=== PATIENT | female | born 1995 | race Caucasian/White ===

== ENCOUNTER 2022-05-20 09:15 | Outpatient (CLI) | payer OTHER, SELFPAY ==
--- NOTE | 2022-05-20 09:35 | XR_ITS ---
WS: [id number] Right hand, AP and lateral views, 05/20/2022 Clinical Data: BILATERAL HAND NUMBNESS Comparison: None. Findings: No fractures or dislocations are seen. The soft tissues are unremarkable. The joint space s are normal No periarticular demineralization or calcifications are seen. XR/XR hand RT 2V [id number] Impression: Negative right hand.
--- NOTE | 2022-05-20 09:35 | XR_ITS ---
WS: [id number] Left hand, AP and lateral views, 05/20/2022 Clinical Data: BILATERAL HAND NUMBNESS Comparison: None. Findings: No fractures or dislocations are seen. The soft tissues are unremarkable. The joint spaces are normal No periarticular demineralization or calcifications are seen. XR/XR hand LT 2V [id number] Impression: Negative left hand.
== END 2022-05-20 09:16 | disposition home or self-care (01) ==
PROVIDERS: PCP Family Medicine; Visit Provider Family Medicine
DX: R20.0 Anesthesia of skin (principal)
CPT/HCPCS: 73120

== ENCOUNTER 2022-06-16 07:31 | Day surgery (SDC) | payer OTHER, SELFPAY ==
[2022-06-14 12:11] VITALS: BMI 22.8
[2022-06-16 08:04] VITALS: BP 96/71; PULSE 84; RESP 16; TEMP 36.3; O2SAT 99
[2022-06-16 08:15] LABS: OR HCG Qualitative Urine Negative (Negative)
[2022-06-16] MEDS: sodium chloride 0.9% 1,000 ML 30 ML IV (08:20)
--- NOTE | 2022-06-16 08:57 | ANES.PREANE2 ---
Pre-Anesthetic Assessment Height/Weight: Height 1.57 m Weight 56.699 kg Temp Pulse Resp BP Pulse Ox O2 Del Method 97.3 F L 84 16 96/71 99 06/16/22 08:04 06/16/22 08:04 06/16/22 08:04 06/16/22 08:04 06/16/22 08:04 06/16/22 08:04 Preop Diagnosis: abdominal pain and bloody diarrhea Operation Date: 06/16/22 09:15 Proposed Procedures p EGD and colonoscopy [id number],K92.1(Not Applicable) - Teo Blanco MD s Colonoscopy(Not Applicable) - Teo Blanco MD Last intake: Intake Last Liquid Date 06/15/22 Last Liquid Time 22:00 Last Solid Date 06/14/22 Last Solid Time 18:00 Social denies all Exam alert, oriented x 3, clear to auscultation bilaterally and regular rate & rhythm Airway Submandibular: within normal limits Cervical ROM: within normal limits Mallampati: Class II Comments: Comments: underbite, anterior chin History/ROS No significant history except as noted Pulmonary None reported CV/HEM None reported None reported Hepatic None reported GI Gastroesophageal Reflux Disease Metabolic None reported Musc/skel None reported Neuropsych Anxiety and Depression Anesthetic Plan ASA status: 2 Anesthesia: Anesthesia Evaluation and MAC Risk of > 500 ml blood loss (7ml/kg in children): Yes, adequate IV access and fluids planned Medications/Allergies Home Medications Medication Instructions Recorded Confirmed Last Taken Type ferrous sulfate 325 mg (65 mg 325 mg PO DAILY 10/26/21 06/16/22 06/14/22 History iron) tablet (Feosol) rizatriptan 10 mg tablet (Maxalt) 10 mg PO Q2H PRN headache 10/26/21 06/16/22 06/14/22 History topiramate 25 mg tablet (Topamax) 25 mg PO BID 10/26/21 06/16/22 06/09/22 History naproxen 500 mg tablet 500 mg PO PRN headach 06/14/22 06/16/22 06/13/22 History Allergies Allergy/AdvReac Type Severity Reaction Status Date / Time No Known Allergies Allergy Verified 05/17/22 18:03 Current Medications Generic Name Dose Route Start Last Admin Trade Name Freq PRN Reason Stop Dose Admin Sodium Chloride 1,000 mls @ 30 mls/hr 06/16/22 08:00 06/16/22 08:20 Sodium Chloride 0.9% IV 30 mls/hr .Q24H [place]TON Administration PFSH Anesthesia Social History Smoking and tobacco status: never smoked Data Anesthesia Cardiac Studies: No Data to Display
--- NOTE | 2022-06-16 09:28 | W.PM.OPSFHP ---
Same Day Surgery H&P Indication for Procedure/HPI DATE OF PROCEDURE: June 16, 2022 CHIEF COMPLAINT/INDICATIONFOR SURGICAL PROCEDURE: My elise garcia PREOP DIAGNOSIS: abdominal pain and bloody diarrhea PLANNED PROCEDURE: Operation Date: 06/16/22 09:15 Proposed Procedures p EGD and colonoscopy [id number],K92.1(Not Applicable) - Teo Blanco MD s Colonoscopy(Not Applicable) - Teo Blanco MD 05/16/2022 This is a pleasant 27 years old female patient otherwise healthy gives history of central sharp abdominal pain not being referred since she was a teenage.? She reports also that she does have bloody diarrhea and she gives history of Crohn's disease of her aunt and ulcerative colitis of one of her cousins.? She had history of surgical pyloromyotomy when she was a baby.? Denies personal history of inflammatory bowel disease.? Also denies history of mucus passage with stools.? She complains also of heartburn. Pain is not being referred mostly in the center of her abdomen.? No history of recent travels or thyroid disorders or sick contacts or questionable source of water or antibiotics.Patient is referred to my practice for further evaluation and potential management. 06/16/2022 Patient comes today for diagnostic EGD and colonoscopy ROS All systems have been reviewed negative except as for the above or per problem list. Medications/Allergies* Home Medications Medication Instructions Recorded Confirmed Type ferrous sulfate 325 mg (65 mg 325 mg PO DAILY 10/26/21 06/16/22 History iron) tablet (Feosol) rizatriptan 10 mg tablet (Maxalt) 10 mg PO Q2H PRN headache 10/26/21 06/16/22 History topiramate 25 mg tablet (Topamax) 25 mg PO BID 10/26/21 06/16/22 History naproxen 500 mg tablet 500 mg PO PRN headach 06/14/22 06/16/22 History Allergies/Adverse Reactions Allergy/AdvReac Type Severity Reaction Status Date / Time No Known Allergies Allergy Verified 06/16/22 09:29 Current Medications: Generic Name Dose Route Start Last Admin Trade Name Freq PRN Reason Stop Dose Admin Sodium Chloride 1,000 mls @ 30 mls/hr 06/16/22 08:00 06/16/22 08:20 Sodium Chloride 0.9% IV 30 mls/hr .Q24H [place] Administration Pertinent History/Comorbid Conditions* Social History Smoking and tobacco status: never smoked Pertinent Exam Findings alert, oriented x 3, regular rate & rhythm and procedure specific exam findings (Abdominal exam nontender nondistended soft) Recommendations Surgery/Procedure today (EGD and colonoscopy with possible biopsy) Coding Level of Care Code Acute Film Processing Shift Supervisor for Aracelis Crockett
[2022-06-16 10:05] VITALS: BP 90/52; PULSE 79; RESP 12; TEMP 36.5; O2SAT 96
[2022-06-16 10:18] VITALS: BP 101/63; PULSE 79; RESP 16; O2SAT 98
[2022-06-16] MEDS: ondansetron 2 mg/ML SDV 2 mL 4 MG IVP (10:30)
[2022-06-16 10:32] VITALS: BP 97/58; PULSE 81; RESP 18; O2SAT 100
--- NOTE | 2022-06-16 14:58 | ANE.PACU2 ---
Inpatient post-anesthesia follow up: Airway intact: Yes Vital signs: Temperature 97.7 F Pulse Rate 81 Respiratory Rate 18 Blood Pressure 97/58 Pulse Oximetry 100 Oxygen Delivery Me thod Room Air Oxygen Flow Rate Fraction of Inspir ed Oxygen Hydration adequate: Yes Nausea and vomiting: No Pain level: 1 Mental status: Baseline
== END 2022-06-16 11:02 | disposition home or self-care (01) ==
PROVIDERS: Anesthesiology; PCP Family Medicine; Visit Provider Surgery
PROC: 0DJ08ZZ Inspection of Upper Intestinal Tract, Via Natural or Artificial Opening Endoscopic (ICD-10-PCS; CPT 43235; principal; 2022-06-16 09:15)
PROC: 0DJD8ZZ Inspection of Lower Intestinal Tract, Via Natural or Artificial Opening Endoscopic (ICD-10-PCS; CPT 45378; 2022-06-16 09:15)
DX: R10.9 Unspecified abdominal pain (principal); R19.7 Diarrhea, unspecified; K21.00 Gastro-esophageal reflux disease with esophagitis, without bleeding; K29.70 Gastritis, unspecified, without bleeding; K29.50 Unspecified chronic gastritis without bleeding; K29.80 Duodenitis without bleeding
CPT/HCPCS: 43239; 45378; 81025; 82274; 83630; 84703; 87493; 87506; 88305; J2405; J2704; J7030

== ENCOUNTER 2022-09-12 11:11 | Outpatient (CLI) | payer BC, SELFPAY ==
--- NOTE | 2022-09-12 12:30 | CTR_ITS ---
PROCEDURE INFORMATION: Exam: CT Abdomen And Pelvis With Contrast Exam date and time: 09/12/2022 1:21 PM Age: 27 years old Clinical indication: Pain and condition or disease; Prior surgery; Surgery type: Colon when child, surgical pyloromyotomy; Patient HX: History--abdominal pain and blood in stool; Additional info: Z87.898 - personal history of other specified conditions, iv and oral contrast TECHNIQUE: Imaging protocol: Computed tomography of the abdomen and pelvis with contrast. Radiation optimization: All CT scans at this facility use at least one of these dose optimization techniques: automated exposure control; mA and/or kV adjustment per patient size (includes targeted exams where dose is matched to clinical indication); or iterative reconstruction. Contrast material: OMNIPAQUE 350; Contrast volume: 95 ml; Contrast route: INTRAVENOUS (IV); Other contrast: Oral, omnipaque 350, 20; COMPARISON: No relevant prior studies available. RADIATION DOSE METRICS: Total DLP (mGy-cm): 866.44 FINDINGS: Liver: Normal. No mass. Gallbladder and bile ducts: Normal. No calcified stones. No ductal dilation. Pancreas: Normal. No ductal dilation. Spleen: Normal. No splenomegaly. Adrenal glands: Normal. No mass. Kidneys and ureters: No obstructing calculus. No hydronephrosis. Stomach and bowel: Unremarkable. No obstruction. No mucosal thickening. Appendix: No evidence of appendicitis. Intraperitoneal space: Unremarkable. No free air. No significant fluid collection. Vasculature: No abdominal aortic aneurysm. Lymph nodes: No enlarged lymph nodes. Urinary bladder: Unremarkable as visualized. Reproductive: Unremarkable as visualized. Bones/joints: No acute fracture. Soft tissues: No acute findings. CT/CT abdomen pelvis w con* [id number] IMPRESSION: No acute findings or significant bowel findings to account for history of GI bleed. However follow-up with endoscopy correlation may be helpful.
[2022-09-12] MEDS: iohexol 350 mg/mL 500 mL Btl (per mL) PO (12:57)
[2022-09-12] MEDS: iohexol 350 mg/mL 500 mL Btl (per mL) IV (13:53)
== END 2022-09-12 11:12 | disposition home or self-care (01) ==
LOC: RAD 11:11
PROVIDERS: PCP Family Medicine; Visit Provider Surgery
DX: Z87.19 Personal history of other diseases of the digestive system (principal); Z87.898 Personal history of other specified conditions
CPT/HCPCS: 74177; J1200; Q9967

== ENCOUNTER 2023-07-09 19:28 | Emergency (ER) | payer BC, MEDICAID, SELFPAY ==
[2023-07-09 19:37] VITALS: BP 147/107; PULSE 95; RESP 21; TEMP 36.6; O2SAT 95; BMI 27.4
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
[2023-07-09] MEDS: tetracaine 0.5% Op Soln 4 mL Btl 1 DROP EYE-LEFT (19:51)
[2023-07-09] MEDS: HYDROcodone-acetaminophen 7.5-325 mg Tablet 1 TAB PO (19:51)
[2023-07-09] MEDS: fluorescein 1 mg Strip EYE-LEFT (19:51)
== END 2023-07-09 20:25 | disposition home or self-care (01) ==
PROVIDERS: Emergency Provider Nurse Practitioner Family; PCP Family Medicine
DX: S05.02XA Injury of conjunctiva and corneal abrasion without foreign body, left eye, initial encounter (principal); W22.8XXA Striking against or struck by other objects, initial encounter
CPT/HCPCS: 99283

== ENCOUNTER 2023-08-26 20:15 | Emergency (ER) | payer MEDICAID, SELFPAY ==
[2023-08-26 20:19] VITALS: BP 121/69; PULSE 82; RESP 14; TEMP 36.7; O2SAT 100
[2023-08-26 21:10] LABS: Basophils % 0.3 %; Eosinophils # 0.1 10^3/uL (0.0-0.8); Eosinophils % 1.2 %; Hematocrit 42.5 % (36-47); Lymphocytes # 2.9 10^3/uL (0.8-4.8); Lymphocytes % 29.3 %; Mean Corpuscular HGB Conc 33.2 g/dL (30-55); Mean Corpuscular Hemoglobin 28.7 pg (27-33); Mean Corpuscular Volume 86.4 fl (85-98); Mean Platelet Volume 8.4 fL (7.4-10.4); Monocytes # 0.5 10^3/uL (0.2-0.9); Monocytes % 5.4 %; Neutrophils # 6.22 10^3/uL (1.8-7.7); Neutrophils % 63.6 %; Nucleated Red Blood Cells % 0 %; Platelet Count 356 10^3/cmm (157-399); Red Blood Count 4.92 10^6/uL (3.85-5.65); Red Cell Distribution Width 12.7 % (12.1-15.1); White Blood Count 9.79 10^3/uL (3.29-11.43)
[2023-08-26 21:30] LABS: Alanine Aminotransferase 8 U/L (0-33); Albumin Level 4.9 g/dL (3.5-5.2); Alkaline Phosphatase 70 U/L (35-105); Anion Gap 14.8 (5-19); Aspartate Amino Transferase 15 U/L (0-32); Blood Urea Nitrogen 11 mg/dL (6-20); Calcium 9.4 mg/dL (8.5-10.5); Carbon Dioxide 24 mmol/L (22-29); Chloride 103 mmol/L (98-107); Globulin 3.1 g/dL (1.3-4.6); Glucose 83 mg/dL (65-115); Lipase 50 U/L (13-60); Osmolality Calculated 285 mOsm/kg (285-295); Potassium 3.8 mmol/L (3.5-5.1); Sodium 138 mmol/L (136-145); Total Bilirubin 0.3 mg/dL (0.15-1.2)
--- NOTE | 2023-08-26 22:06 | W.ED.PREGNAN ---
HPI - General: Chief complaint: Vaginal Bleeding Stated complaint: passing blood clots with abd pain Time Seen by Provider: 08/26/23 21:14 Source: patient Mode of arrival: ambulatory Limitations: no limitations History of Present Illness: 28-year-old female states that she has had heavy vaginal bleeding throughout the day states actually slowed down this evening she had passed blood clots earlier today. She does have irregular menstruation states that her menstruation is 3 weeks late states there is a chance she could be she had some abdominal cramping denies any lightheadedness. Associated symptoms: Reports abdominal pain; Deny dysuria, headache(s), nausea or vomiting Review of Systems Const: Denies: fever(s), chills, body aches or change in appetite ENMT: Denies: throat pain or dental pain Card: Denies: chest pain Resp: Denies: dyspnea GI: Reports: abdominal pain; Denies: nausea, vomiting or diarrhea : Reports: vaginal bleeding; Denies: dysuria Musc: Denies: neck pain or back pain Skin/Breast: Denies: rash Neuro: Denies: headache(s) PFSH ED PFSH: Social History Smoking and tobacco/nicotine status: never used tobacco/nicotine Alcohol intake: never Substance/Drug Use: never Physical Exam Const: COMMON NORMALS: no acute distress, patient oriented x3 and healthy appearing HENMT: COMMON NORMALS: normocephalic and atraumatic HEAD & SCALP: normocephalic and atraumatic Neck/C-Spine: COMMON NORMALS: full ROM and supple Chest: COMMONS NORMALS: normal inspection of the chest Resp: COMMON NORMALS: normal respiratory effort GI: COMMON NORMALS: Normal to inspection, nondistended, normoactive bowel sounds present, Soft to palpation, non-tender and no masses PALPATION: Yes Soft to palpation Extremity: COMMON NORMALS: normal to inspection and full ROM Neuro: COMMON NORMALS: patient oriented x3, moves all extremities and no focal motor deficits Psych: COMMON NORMALS: mental status grossly normal, Normal thought process present and cooperative THOUGHT PROCESS: Normal thought process present Skin: COMMON NORMALS: no rashes or lesions noted and no wounds GENERAL SKIN EXAM: no rashes or lesions noted Course Vital Signs: Vital signs: Vital Signs Temperature 98.0 F 08/26/23 20:19 Pulse Rate 78 08/26/23 23:08 Respiratory Rate 16 08/26/23 23:08 Blood Pressure 111/61 08/26/23 23:08 Pulse Oximetry 100 08/26/23 23:08 Oxygen Delivery Me thod Room Air 08/26/23 20:19 MDM - OB/Uterine Contractions Medical Decision Making Patient presents with vaginal bleeding with threatened miscarriage from looks ultrasound patient is likely going to miscarry have informed her of this she is return if she has heavy bleeding her bleeding is slowed down here she is to follow-up with her PCP. Medical Records I reviewed the patient's medical records. Lab Data I reviewed the patient's lab results. 08/26/23 21:00 08/26/23 21:00 Laboratory Results WBC 9.79 10^3/uL (3.29-11.43) 08/26/23 21:00 RBC 4.92 10^6/uL (3.85-5.65) 08/26/23 21:00 Hgb 14.10 g/dL (11.27-16.99) 08/26/23 21:00 Hct 42.5 % (36-47) 08/26/23 21:00 MCV 86.4 fl (85-98) 08/26/23 21:00 MCH 28.7 pg (27-33) 08/26/23 21:00 MCHC 33.2 g/dL (30-55) 08/26/23 21:00 RDW 12.7 % (12.1-15.1) 08/26/23 21:00 Plt Count 356 10^3/cmm (157-399) 08/26/23 21:00 MPV 8.4 fL (7.4-10.4) 08/26/23 21:00 Neut % (Auto) 63.6 % 08/26/23 21:00 Lymph % (Auto) 29.3 % 08/26/23 21:00 [place] % (Auto) 5.4 % 08/26/23 21:00 Eos % (Auto) 1.2 % 08/26/23 21:00 Baso % (Auto) 0.3 % 08/26/23 21:00 Neut # (Auto) 6.22 10^3/uL (1.8-7.7) 08/26/23 21:00 Lymph # (Auto) 2.9 10^3/uL (0.8-4.8) 08/26/23 21:00 [place] # (Auto) 0.5 10^3/uL (0.2-0.9) 08/26/23 21:00 Eos # (Auto) 0.1 10^3/uL (0.0-0.8) 08/26/23 21:00 Baso # (Auto) 0.0 10^3/uL (0.0-0.1) 08/26/23 21:00 Nucleated RBC % (auto) 0 % 08/26/23 21:00 Nucleated RBCs # 0.0 /100WBC 08/26/23 21:00 Sodium 138 mmol/L (136-145) 08/26/23 21:00 Potassium 3.8 mmol/L (3.5-5.1) 08/26/23 21:00 Chloride 103 mmol/L (98-107) 08/26/23 21:00 Carbon Dioxide 24 mmol/L (22-29) 08/26/23 21:00 Anion Gap 14.8 (5-19) 08/26/23 21:00 BUN 11 mg/dL (6-20) 08/26/23 21:00 Creatinine 0.8 mg/dL (0.5-0.9) 08/26/23 21:00 GFR Calculation 86.0 mL/min (90-130) L 08/26/23 21:00 Glucose 83 mg/dL (65-115) 08/26/23 21:00 Calculated Osmolality 285 mOsm/kg (285-295) 08/26/23 21:00 Calcium 9.4 mg/dL (8.5-10.5) 08/26/23 21:00 Total Bilirubin 0.3 mg/dL (0.15-1.2) 08/26/23 21:00 AST 15 U/L (0-32) 08/26/23 21:00 ALT 8 U/L (0-33) 08/26/23 21:00 Alkaline Phosphatase 70 U/L (35-105) 08/26/23 21:00 Total Protein 8.0 g/dL (6.6-8.7) 08/26/23 21:00 Albumin 4.9 g/dL (3.5-5.2) 08/26/23 21:00 Globulin 3.1 g/dL (1.3-4.6) 08/26/23 21:00 Lipase 50 U/L (13-60) 08/26/23 21:00 Ser , Semi-Qnt 7624.00 mIU/mL 08/26/23 21:00 Urine Color Yellow (Yellow) 08/26/23 22:50 Urine Appearance Clear (CLEAR) 08/26/23 22:50 Urine pH 6.5 (5-7) 08/26/23 22:50 Ur Specific [place] 1.015 (1.005-1.030) 08/26/23 22:50 Urine Protein Neg (Negative) 08/26/23 22:50 Urine Glucose (UA) Norm (Normal) 08/26/23 22:50 Urine Ketones 1+ (Negative) H 08/26/23 22:50 Urine Blood 3+ (Negative) H 08/26/23 22:50 Urine Nitrate Negative (Negative) 08/26/23 22:50 Urine Bilirubin Neg (Negative) 08/26/23 22:50 Urine Urobilinogen Neg mg/dL (Negative) 08/26/23 22:50 Ur Leukocyte Esterase Negative (Negative) 08/26/23 22:50 Urine RBC 15-25 /hpf (0-2) H 08/26/23 22:50 Urine WBC None /hpf (0-5) 08/26/23 22:50 Ur Squamous Epith Cells Rare /hpf (0-5) 08/26/23 22:50 Amorphous Sediment Not Reportable 08/26/23 22:50 Urine Bacteria None /hpf (NONE) 08/26/23 22:50 XR interpretation done by ED provider, pending radiology final review Discharge Plan Discharge Patient Disposition: Home Clinical Impression: Threatened Condition: Stable Prescriptions: No Action topiramate [Topamax] 25 mg tablet 25 mg PO BID rizatriptan [Maxalt] 10 mg tablet 10 mg PO Q2H PRN (Reason: headache) Rx Instructions: do not exceed 3 doses per 24 hrs ferrous sulfate [Feosol] 325 mg (65 mg iron) tablet 325 mg PO DAILY Protonix 40 mg tablet,delayed release (DR/EC) 40 mg PO DAILY 30 Days Qty: 30 3RF hydrocodone-acetaminophen 5-325 mg tablet 1 tab PO Q6H PRN (Reason: pain) Qty: 10 0RF Discharge Orders: Discharge ED (Routine); Ordered 08/26/23 Ordered By: Magdalena Marquez Referrals: Nick Tolentino MD [Primary Care Provider] - 1-3 days Discharge Diet: Advance as tolerated Discharge Activity: Resume usual activity Patient Instructions: Threatened Miscarriage (ED) Coding Level of Care Code ED Logistics Manager for Aracelis Crockett
--- NOTE | 2023-08-26 22:30 | USR_ITS ---
PROCEDURE INFORMATION: Exam: US First Trimester, Transabdominal and US , Transvaginal Exam date and time: 08/26/2023 11:09 PM Age: 28 years old Clinical indication: Lmp or gestational age (in weeks): 7w6d per patient; Antepartum complications; Bleeding; Additional info: Threatened miscarriage LABS AND CLINICAL REPORTS: Last menstrual period start date: 07/02/2023 Gestational age (Established): 7 w 6 d Estimated due date (Established): 04/07/2024 TECHNIQUE: Imaging protocol: Real-time transabdominal obstetrical ultrasound of the maternal pelvis and a first trimester , less than 14 weeks 0 days, with image documentation. Transvaginal imaging was used for better evaluation of the fetus, adnexa, and/or cervix. COMPARISON: CT abdomen pelvis w con* [id number] 09/12/2022 1:21 PM FINDINGS: Gestation: Intrauterine gestational sac with a possible pole in the inferior aspect of the sac, finding appears to potentially represent an abnormal , close clinical correlation, serial beta HCG levels and follow-up ultrasound as clinically indicated advised. cardiac activity not identified. BIOMETRY: Gestational age (AUA): 6 w 2 d Mean sac diameter: 1.35 cm. EGA (MSD) is 6 w 3 d Barnum-Rump length (CRL): 3.7 mm. EGA (CRL) is 6 w 0 d MATERNAL: Uterus: Unremarkable. Cervix: Cervical length measures 3.06 cm. Right ovary/adnexa: Right ovary 8 mm cyst, may be corpus luteal nature. Left ovary/adnexa: Unremarkable ovary. Intraperitoneal space: No intraperitoneal free fluid. US/US OB <=14 wk fetus w transvag IMPRESSION: 1. Intrauterine gestational sac with a possible pole in the inferior aspect of the sac, finding appears to potentially represent an abnormal , close clinical correlation, serial beta HCG levels and follow-up ultrasound as clinically indicated advised. cardiac activity not identified. 2. Right ovary 8 mm cyst, may be corpus luteal nature.
[2023-08-26 23:08] VITALS: BP 111/61; PULSE 78; RESP 16; O2SAT 100
[2023-08-26 23:34] LABS: Add Urine Culture? Yes; Add Urine Microscopic? YES; Bilirubin Urine Neg (Negative); Blood Urine 3+ (Negative); Glucose Urine UA Norm (Normal); Ketones Urine 1+ (Negative); Leukocyte Esterase Urine Negative (Negative); Nitrate Urine Negative (Negative); Protein Urine Neg (Negative); RBC Urine 15-25 /hpf (0-2); Specific Gravity, Urine 1.015 (1.005-1.030); Squamous Epithelial Cell Urine RARE /hpf (0-5); Urine Appearance Clear (CLEAR); Urine Color Yellow (Yellow); Urobilinogen Urine Neg (Negative); pH Urine 6.5 (5-7)
[2023-08-26 23:46] VITALS: BP 120/63; PULSE 94; RESP 16; O2SAT 99
== END 2023-08-26 23:50 | disposition home or self-care (01) ==
PROVIDERS: Emergency Provider Emergency Medicine; PCP Family Medicine
DX: O20.0 Threatened abortion (principal); Z3A.01 Less than 8 weeks gestation of pregnancy
CPT/HCPCS: 36415; 76801; 76817; 80053; 81001; 83690; 84702; 85025; 87086; 99284

== ENCOUNTER 2023-08-29 11:07 | Emergency (ER) | payer MEDICAID, SELFPAY ==
[2023-08-29 11:30] LABS: Basophils % 0.3 %; Eosinophils # 0.1 10^3/uL (0.0-0.8); Eosinophils % 0.7 %; Hematocrit 36.6 % (36-47); Lymphocytes # 2.6 10^3/uL (0.8-4.8); Lymphocytes % 30.5 %; Mean Corpuscular HGB Conc 33.1 g/dL (30-55); Mean Corpuscular Hemoglobin 28.8 pg (27-33); Mean Corpuscular Volume 87.1 fl (85-98); Mean Platelet Volume 8.7 fL (7.4-10.4); Monocytes # 0.4 10^3/uL (0.2-0.9); Monocytes % 4.1 %; Neutrophils # 5.52 10^3/uL (1.8-7.7); Neutrophils % 64.2 %; Nucleated Red Blood Cells % 0 %; Platelet Count 343 10^3/cmm (157-399); Red Cell Distribution Width 12.7 % (12.1-15.1); White Blood Count 8.61 10^3/uL (3.29-11.43)
[2023-08-29 11:47] LABS: Alanine Aminotransferase 8 U/L (0-33); Albumin Level 4.6 g/dL (3.5-5.2); Alkaline Phosphatase 65 U/L (35-105); Aspartate Amino Transferase 11 U/L (0-32); Blood Urea Nitrogen 9 mg/dL (6-20); Calcium 9.5 mg/dL (8.5-10.5); Carbon Dioxide 26 mmol/L (22-29); Chloride 101 mmol/L (98-107); Globulin 2.6 g/dL (1.3-4.6); Glomerular Filtration Rate 119.9 mL/min (90-130); Glucose 90 mg/dL (65-115); Osmolality Calculated 280 mOsm/kg (285-295); Sodium 136 mmol/L (136-145); Total Bilirubin 0.3 mg/dL (0.15-1.2); Total Protein 7.2 g/dL (6.6-8.7)
[2023-08-29 12:05] VITALS: BP 114/78; PULSE 68; RESP 18; TEMP 36.7; O2SAT 100; BMI 24.7
--- NOTE | 2023-08-29 13:46 | ED_ITS ---
HPI - Female Genitourinary 2 General: Chief complaint: Vaginal Bleeding Stated complaint: vaginal bleeding, light headed Time Seen by Provider: 08/29/23 11:24 Source: patient Mode of arrival: ambulatory Limitations: no limitations History of Present Illness: Patient is a [id number] female at unknown gestation here for continued bleeding secondary to probably miscarriage. States she began bleeding three days ago and was seen here. US suspicious for abnormal -no heart tones identified. Hcg at that visit was roughly 7600. She states since that visit she has continued to have bleeding which she describes as light at times followed by heavy with clots. States she is supposed to be following up with Dr. Matt pace at [facility]. MD elicited complaint: possible miscarriage Pertinent past history: prior miscarriages Onset (ago): day(s) Severity: moderate Quality of pain: cramping Consistency: intermittent Vaginal discharge: none Vaginal bleeding: moderate and clots Exacerbating factors: none Relieving factors: none Associated symptoms: Reports no associated symptoms; Deny abdominal pain, headache(s) or nausea Treatment prior to arrival: none Sexual activity: Yes Patient : Yes Review of Systems 2 Const: Denies: fever(s), chills, body aches, fatigue or malaise Card: Denies: chest pain Resp: Denies: dyspnea GI: Denies: abdominal pain, nausea, vomiting, diarrhea or change in bowel habits : Reports: vaginal bleeding and pelvic pain (cramping); Denies: flank pain, difficulty voiding, dysuria, urinary frequency, urinary urgency or urinary hesitancy Musc: Denies: neck pain, back pain, extremity pain or joint pain Skin/Breast: Denies: rash Neuro: Reports: dizziness; Denies: headache(s), numbness in extremities, weakness in extremities or sensory changes PFSH ED 2 PFSH: Social History Smoking and tobacco/nicotine status: never used tobacco/nicotine Alcohol intake: never Substance/Drug Use: never Physical Exam 2 Const: COMMON NORMALS: no acute distress, average body habitus, patient oriented x3, no limitations, healthy appearing and well nourished Resp: COMMON NORMALS: normal respiratory effort Cardio: COMMON NORMALS: regular rate and regular rhythm RATE: regular rate RHYTHM: regular rhythm GI: COMMON NORMALS: Normal to inspection, nondistended, normoactive bowel sounds present, Soft to palpation, No hepatosplenomegaly present and no masses INSPECTION: Yes normal to inspection PALPATION: Yes Soft to palpation, Yes Tenderness to palpation present (GI) (mild lower pelvis), No Guarding due to palpation present (GI), No Rigid due to palpation and Yes No hepatosplenomegaly present : COMMON NORMALS: Yes no CVA tenderness BLADDER/KIDNEY EXAM: Yes no CVA tenderness SPECULUM EXAM - CERVIX: Yes Cervical os open and Yes Tissue present in the cervical os (removed/cleared) OB/EXTERNAL & SPECULUM: Cervical os open Back/Pelvis: COMMON NORMALS: no CVA tenderness Neuro: COMMON NORMALS: patient oriented x3 Course 2 Vital Signs: Vital signs: Vital Signs Temperature 98.0 F 08/29/23 12:05 Pulse Rate 98 08/29/23 14:51 Respiratory Rate 18 08/29/23 12:05 Blood Pressure 120/68 08/29/23 14:51 Pulse Oximetry 100 08/29/23 12:05 Oxygen Delivery Me thod Room Air 08/29/23 12:05 MDM - Female Medical Decision Making Patient here 3 days ago with an ultrasound that was abnormal. Results below: US/US OB <=14 wk fetus w transvag IMPRESSION: 1. Intrauterine gestational sac with a possible pole in the inferior aspect of the sac, finding appears to potentially represent an abnormal , close clinical correlation, serial beta HCG levels and follow-up ultrasound as clinically indicated advised. cardiac activity not identified. 2. Right ovary 8 mm cyst, may be corpus luteal nature. Patient here for continued bleeding. hCG at last visit was roughly 7600. She is down to 7000. On exam she has a open cervical os with products of conception. This was cleared. She states bleeding has improved while here. She is not tachycardic or hypotensive. Hemoglobin is down to 12.1 compared to 14.1 three days ago. Orthostatics are normal. She will follow up with Dr. Gutierrez later this week. Return to ED precautions. No need to repeat US today as hcg and physical exam are consistent with miscarriage. Strict return precautions given. Lab Data 08/29/23 11:23 08/29/23 11:23 Laboratory Results WBC 8.61 10^3/uL (3.29-11.43) 08/29/23 11: RBC 4.20 10^6/uL (3.85-5.65) 08/29/23 11: Hgb 12.10 g/dL (11.27-16.99) 08/29/23 11:23 Hct 36.6 % (36-47) 08/29/23 11:23 MCV 87.1 fl (85-98) 08/29/23 11:23 MCH 28.8 pg (27-33) 08/29/23 11:23 MCHC 33.1 g/dL (30-55) 08/29/23 11:23 RDW 12.7 % (12.1-15.1) 08/29/23 11:23 Plt Count 343 10^3/cmm (157-399) 08/29/23 11: MPV 8.7 fL (7.4-10.4) 08/29/23 11:23 Neut % (Auto) 64.2 % 08/29/23 11:23 Lymph % (Auto) 30.5 % 08/29/23 11:23 [place] % (Auto) 4.1 % 08/29/23 11:23 Eos % (Auto) 0.7 % 08/29/23 11:23 Baso % (Auto) 0.3 % 08/29/23 11:23 Neut # (Auto) 5.52 10^3/uL (1.8-7.7) 08/29/23 11:23 Lymph # (Auto) 2.6 10^3/uL (0.8-4.8) 08/29/23 11:23 [place] # (Auto) 0.4 10^3/uL (0.2-0.9) 08/29/23 11:23 Eos # (Auto) 0.1 10^3/uL (0.0-0.8) 08/29/23 11:23 Baso # (Auto) 0.0 10^3/uL (0.0-0.1) 08/29/23 11:23 Nucleated RBC % (auto) 0 % 08/29/23 11: Nucleated RBCs # 0.0 /100WBC 08/29/23 11:23 Sodium 136 mmol/L (136-145) 08/29/23 11:23 Potassium 4.0 mmol/L (3.5-5.1) 08/29/23 11:23 Chloride 101 mmol/L (98-107) 08/29/23 11:23 Carbon Dioxide 26 mmol/L (22-29) 08/29/23 11:23 Anion Gap 13.0 (5-19) 08/29/23 11: BUN 9 mg/dL (6-20) 08/29/23 11:23 Creatinine 0.6 mg/dL (0.5-0.9) 08/29/23 11:23 GFR Calculation 119.9 mL/min (90-130) 08/29/23 11:23 Glucose 90 mg/dL (65-115) 08/29/23 11: Calculated Osmolality 280 mOsm/kg (285-295) L 08/29/23 11:23 Calcium 9.5 mg/dL (8.5-10.5) 08/29/23 11: Total Bilirubin 0.3 mg/dL (0.15-1.2) 08/29/23 11: AST 11 U/L (0-32) 08/29/23 11:23 ALT 8 U/L (0-33) 08/29/23 11:23 Alkaline Phosphatase 65 U/L (35-105) 08/29/23 11:23 Total Protein 7.2 g/dL (6.6-8.7) 08/29/23 11: Albumin 4.6 g/dL (3.5-5.2) 08/29/23 11: Globulin 2.6 g/dL (1.3-4.6) 08/29/23 11:23 Ser , Semi-Qnt 7026.00 mIU/mL 08/29/23 11:23 No radiology studies performed this visit Discharge Plan Discharge Patient Disposition: Home Clinical Impression: Miscarriage Condition: Stable Prescriptions: No Action topiramate [Topamax] 25 mg tablet 25 mg PO BID rizatriptan [Maxalt] 10 mg tablet 10 mg PO Q2H PRN (Reason: headache) Rx Instructions: do not exceed 3 doses per 24 hrs ferrous sulfate [Feosol] 325 mg (65 mg iron) tablet 325 mg PO DAILY Protonix 40 mg tablet,delayed release (DR/EC) 40 mg PO DAILY 30 Days Qty: 30 3RF hydrocodone-acetaminophen 5-325 mg tablet 1 tab PO Q6H PRN (Reason: pain) Qty: 10 0RF Discharge Orders: Discharge ED (Routine); Ordered 08/29/23 Ordered By: Chantel Morales Referrals: Nick Tolentino MD [Primary Care Provider] - Patient Instructions: Miscarriage (ED) Activity Restrictions/Additional Instructions: As we discussed please follow up with Dr. Gutierrez this week for continued surveillance of your miscarriage. You need to return to the emergency department for worsening bleeding, continued passage of clots or products of conception, dizziness/lightheadedness/passing out episodes, racing heart rate, feeling generally worse or unwell or any other concerns you may have. Coding Level of Care Code ED Online [employer]
[2023-08-29 14:51] VITALS: BP 117/67; BP 118/76; BP 120/68; PULSE 109; PULSE 86; PULSE 98
== END 2023-08-29 15:17 | disposition home or self-care (01) ==
PROVIDERS: Emergency Medicine; Emergency Provider Physician Assistant; PCP Family Medicine
DX: O03.9 Complete or unspecified spontaneous abortion without complication (principal); N83.201 Unspecified ovarian cyst, right side
CPT/HCPCS: 36415; 80053; 84702; 85025; 99283